=== PATIENT | male | born 2000 | race Caucasian/White ===

== ENCOUNTER 2020-11-24 18:51 | Emergency (ER) | payer MEDICAID ==
[~2020-11-24] VITALS: Ht 182.9 cm; Wt 83.9 kg
[2020-11-24 19:34] VITALS: BP 123/73
--- NOTE | 2020-11-24 19:37 | NUR ---
TO LOBBY A/W BED AMBULATORY
--- NOTE | 2020-11-24 20:35 | NUR ---
Pt ambulated to bed 04.
--- NOTE | 2020-11-24 20:41 | NUR ---
ERMD AT BEDSIDE FOR MEDICAL EXAMINATION
--- NOTE | 2020-11-24 20:41 | NUR ---
20 YO MALE PATIENT PRESENTS TO ED WITH A DOG BITE TO HIS LEFT LITTLE FINGER AND LEFT WRIST SINCE TODAY AROUND 1500.DENIES N/V/D; SKIN IS PINK/WARM/DRY; AAOX4 WITH EVEN AND STEADY GAIT; LUNGS CLEAR BL; HR EVEN AND REGULAR; PT DENIES ANY FEVER, CP, SOB, OR COUGH AT THIS TIME; PATIENT STATES PAIN OF 7/10 AT THIS TIME; VSS; PATIENT POSITIONED FOR COMFORT; HOB ELEVATED; BEDRAILS UP X2; BED DOWN. ER MD MADE AWARE OF PT STATUS.
[2020-11-24] MEDS ORDERED: AMOX-1000 PO (20:51)
[2020-11-24] MEDS ORDERED: IBUP-2213 PO (20:51)
[2020-11-24] MEDS ORDERED: BACITRACIN OINT 500 UNITS/GM PKT TP ONE ×2 (20:55)
[2020-11-24 21:05] VITALS: BP 123/73
--- NOTE | 2020-11-24 21:05 | NUR ---
Patient discharged with v/s stable. Written and verbal after care instructions given and explained. Patient verbalized understanding. Ambulatory with steady gait. All questions addressed prior to discharge. Advised to follow up with PMD.
== END 2020-11-24 21:05 | disposition home or self-care (01) ==
LOC: MED 18:51
DX: S61.451A Open bite of right hand, initial encounter (principal); Z79.899 Other long term (current) drug therapy; W54.0XXA Bitten by dog, initial encounter; Y93.89 Activity, other specified; Y92.89 Other specified places as the place of occurrence of the external cause; Y99.8 Other external cause status
CPT/HCPCS: 99283